=== PATIENT | male | born 1960 | race African-American/Black ===

== ENCOUNTER 2021-06-20 13:54 | Inpatient (IN) | payer OTHER ==
[~2021-06-20] VITALS: Ht 167.6 cm; Wt 72.6 kg
[2021-06-20] MEDS ORDERED: MIRAPEX ER1.5 MG PO (14:06)
[2021-06-20] MEDS ORDERED: DIALYVITE 800-1 EACH PO (14:06)
[2021-06-20] MEDS ORDERED: LIPITOR20 MG PO (14:07)
[2021-06-20] MEDS ORDERED: METOTREXATO (14:10)
[2021-06-21] MEDS ORDERED: TREXALL5 MG (09:37)
[2021-06-24] MEDS ORDERED: CEFDINIR300 MG PO (09:13)
== END 2021-06-24 10:17 | disposition home or self-care (01) | DRG 690 ==
LOC: ER 13:54 → MEDI 06-21 00:11
PROVIDERS: ADMIT Internal Medicine; ATTEND Internal Medicine
DX: N39.0 Urinary tract infection, site not specified (principal); E86.0 Dehydration; E87.8 Other disorders of electrolyte and fluid balance, not elsewhere classified; E78.49 Other hyperlipidemia; M06.8A Other specified rheumatoid arthritis, other specified site; I10 Essential (primary) hypertension; E03.8 Other specified hypothyroidism

== ENCOUNTER 2022-02-06 19:01 | Emergency (ER) | payer OTHER ==
[~2022-02-06] VITALS: Ht 170.2 cm; Wt 72.6 kg
[~2022-02-06 19:01] MED LIST: CEFDINIR300 MG PO; DIALYVITE 800-1 EACH PO; LIPITOR20 MG PO; METOTREXATO; MIRAPEX ER1.5 MG PO; TREXALL5 MG
[2022-02-07] MEDS ORDERED: LEVOFLOXACIN250 MG PO (00:36)
== END 2022-02-07 01:50 | disposition home or self-care (01) ==
LOC: ER 19:01
DX: N30.90 Cystitis, unspecified without hematuria (principal); M06.9 Rheumatoid arthritis, unspecified

== ENCOUNTER 2024-09-27 09:02 | Emergency (ER) | payer OTHER ==
[~2024-09-27] VITALS: Ht 170.2 cm; Wt 72.6 kg
[~2024-09-27 09:02] MED LIST changes: +LEVOFLOXACIN250 MG PO
[2024-09-27] MEDS ORDERED: [UNRECOGNIZED DRUG - OTHER] PO (09:19)
[2024-09-27] MEDS ORDERED: 0.9 % SODIUM CHLORIDE 1,000 ML IV STA (10:05)
[2024-09-27 10:36] LABS: HEMATOCRIT 40.4 % (39.0-48.0); MEAN CELL VOLUME 96.6 fL (80.0-100.00); MEAN CORPUSCULAR HEMOGLOBIN 33.5 pg (27.00-32.0); MEAN CORPUSCULAR HGB CONC 34.7 g/dl (32.0-36.0); PLATELET COUNT 212 K/uL (150-450); RED BLOOD COUNT 4.18 M/uL (4.00-6.00); RED CELL DISTRIBUTION WIDTH 12.6 % (11.5-14.5)
[2024-09-27 11:49] LABS: ALBUMIN 3.8 gm/dL (3.4-5.0); BILIRUBIN TOTAL 0.53 mg/dL (0.3-1.2); CALCIUM 9.4 mg/dL (8.5-10.1); CREATININE SERUM 0.72 mg/dL (0.70-1.30); GFR 109.22; GLOBULINA 3.5 G/DL (2.4-3.5); POTASSIUM 3.94 mEq/L (3.5-5.1); TOTAL PROTEIN 7.3 gm/dL (6.4-8.2)
== END 2024-09-27 12:35 | disposition home or self-care (01) ==
LOC: ER 09:03
PROVIDERS: General Practice
DX: I95.9 Hypotension, unspecified (principal); R42 Dizziness and giddiness